=== PATIENT | female | born 1960 | race Caucasian/White ===

== ENCOUNTER 2023-05-02 12:29 | Day surgery (SDC) | payer OTHER, SELFPAY ==
[2023-04-22 10:34] VITALS: BMI 54.2
[2023-05-02] VITALS (9 sets, daily range): BP systolic 147–178; BP diastolic 72–103; PULSE 76–102; RESP 13–22; TEMP 36.3–37; O2SAT 95–97; BMI 54.2
--- NOTE | 2023-05-02 | PATH_ITS ---
[facility] Accession Number: [id number] No. of containers..01 Tissue . 01 Material submitted: . endometrium - ENDOMETRIAL POLYPS . 01 Diagnosis: Endometrium, Polypectomy: Endometrial polyp fragments. Negative for atypical hyperplasia and malignancy. MRV 05/08/2023 1228 Local . 01 Comment: Scant smooth muscle tissue is also present consistent with myometrium. . 01 Electronically signed: . Reyna Grijalva MD, Pathologist NPI- [id number] . 01 Gross description: . ENDOMETRIAL POLYPS: Received in formalin are multiple fragment of eaton soft tissue measuring 4.0 x 4.0 x 0.6 cm in aggregate. Specimen is sectioned and submitted in its entirety in 7 cassettes. /HUNG 05/06/2023 2228 Local . 01 Pathologist provided ICD-10: N84.0 . 01 CPT . 580682 Specimen Comment: A courtesy copy of this report has been sent to [phone] Performed at: 01 [facility] [address] [place] [address] [address] [facility], [place], [place] [id number] MD Narciso Osborn MD Phone: [phone]
--- NOTE | 2023-05-02 13:00 | PM.GYNHP.1 ---
History of Present Illness History of Present Illness Reason for admission: vaginal bleeding Narrative: Chief Complaint: Postmenopausal bleeding Note Note: Patient is a 62-year-old with postmenopausal bleeding.? In 2020 the patient was found to have a large prolapsing endometrial polyp that was removed in the office with endometrial biopsy negative for cancer precancer cells.? Patient has begun having more episodes of intermittent spotting.? She underwent a ultrasound on 02/13/2023 that showed a normal size uterus with an endometrial thickness of 16.1 mm.? Calcified intramural fibroid measuring 3.3 cm decreased in size from prior exam.? Small right ovary with left ovary not visualized. Decision was made to proceed with hysteroscopy D&C. Consent form for hysteroscopy D&C was reviewed with the patient.? Minimal risk of infection, bleeding, reaction to medication or anesthesia, perforation of the uterus that could damage internal structures such as bowel, bladder, ureters that could require opening the abdomen to repair or additional surgery.? Patient is aware that if she has cancer precancer cells on the biopsy she will need a hysterectomy.? Consent form signed, questions answered. [facility] Medical History (Updated 04/22/23 @ 10:41 by Caitie Wu RN) Anxiety Fibroids GERD (gastroesophageal reflux disease) Headache Liver disease Thyroid nodule (2019) Surgical History (Updated 04/22/23 @ 10:40 by Caitie Wu RN) Hx of hernia repair (2010) Status post cholecystectomy (2008) Social History household members: spouse Smoking Status: Former smoker alcohol intake: current Meds Home Medications and Allergies Home Medications Medication Instructions Recorded Confirmed Type ibuprofen 800 mg tablet 800 mg PO Q8H ##20 07/11/16 05/02/23 History hydrochlorothiazide 25 mg tablet 25 mg PO BID #0 tabs 11/02/20 05/02/23 History Allergies Allergy/AdvReac Type Severity Reaction Status Date / Time No Known Drug Allergies Allergy Verified 05/02/23 12:50 Review of Systems Review of Systems ROS: Yes All systems reviewed with the patient and are negative except as otherwise documented Exam Narrative Exam Narrative: Physical exam the HEENT exam within normal limits.? Lungs are clear to auscultation percussion.? No thyromegaly.? Heart is regular rate and rhythm no S3-S4 or murmurs.? Abdomen is obese.? Normal external genitalia with atrophy.? Speculum exam shows a atrophic cervix without any abnormalities.? Pelvic exam was unremarkable but difficult due to the patient's BMI. Assessment & Plan Assessment and plan (1) Postmenopausal bleeding: Status: Acute (2) Endometrial thickening on ultrasound: Status: Acute Assessment & Plan narrative: Patient here for hysteroscopy D&C for postmenopausal bleeding and thickened endometrium on ultrasound.
--- NOTE | 2023-05-02 13:03 | PM.PREOP ---
Pre-operative Note COVID-19 Criteria for continued procedure: Expected advancement of disease process Interval Note History & Physical reviewed/Exam performed by Physician: Yes Changes to H&P: No
--- NOTE | 2023-05-02 13:03 | SUR.OPER ---
Lithotomy on padded OR bed, head on pillow, arms secured on padded arm boards at <90 degrees abduction. Legs secured in padded yellow fins stirrups.
[2023-05-02] MEDS: LACTATED RINGERS 1,000 ML 100 ML IV (13:06)
--- NOTE | 2023-05-02 15:35 | P.OP_ITS ---
Operative Date/Time/Diagnoses Date of procedure: 05/02/23 Time of procedure: 15:35 Pre-op diagnosis: Postmenopausal bleeding with thickened endometrium on ultrasound believed to be polyps Post-op diagnosis: same Procedure & Clinicians Procedure: Hysteroscopy with resection of endometrial polyps Same procedure as scheduled: Yes Indications: Postmenopausal bleeding with polyps by ultrasound Surgeon: Marilyn Veelz Click Yes if Unassisted: Yes Anesthesia Type: General Operative Notes Findings: Endometrial polyp prolapsing out of the patient's cervix, large mass either polyp or intracavitary fibroid, 2 small areas of polyp formation on the lining of the uterus otherwise thin endometrium. Closure Type: not applicable Specimen(s): other (Endometrial polyps with endometrial curettage) Estimated Blood Loss (mL): 15 Procedure in detail: The patient was brought to the operating room where she underwent general anesthesia. She was placed in low stirrups She was prepped and draped in usual sterile fashion with pulsatile stockings in place and functional, warming in pl henry, no antibiotics were indicated. A single-tooth tenaculum was placed on the anterior lip of the cervix and the uterus dilated to #8 Hegar dilator. The hysteroscope was placed into the uterus with a sorbitol solution running and under constant suction. The resecting loop set at 60 W of cutting was used to resect the polyps and mass down to the level of the endometrium. A endometrial curettage was performed. The polyps/mass and the endometrial curettage was sent to pathology. The patient went to recovery room in good condition counts of instruments and sponges were correct. Estimated blood loss less than 15 mL. The sorbitol solution I=O approximately 3000 mL. Complications: none Post-operative Condition: stable Disposition: same day surgery Plan for aftercare: Home when awake and stable. Follow-up will be based on pathology report
[2023-05-02] MEDS: HYDROCODONE/ACET 5/325 TABLET 1 TAB PO (16:26)
--- NOTE | 2023-05-02 16:56 | SUR.PHASEII ---
pt is in the bathroom. Pt steady on her feet. Pt states her pain is better at a level 2. Pt states she is ready to go home. Pt to be discharged with her . Pt voided prior to discharge. Pt had minimal vaginal bleeding.
== END 2023-05-02 17:05 | disposition home or self-care (01) ==
PROVIDERS: PCP Family Medicine; Referring Provider Specialist; Visit Provider Specialist
PROC: 0UDB8ZZ Extraction of Endometrium, Via Natural or Artificial Opening Endoscopic (ICD-10-PCS; CPT 58558; principal; 2023-05-02 12:15)
DX: N95.0 Postmenopausal bleeding (principal); R93.89 Abnormal findings on diagnostic imaging of other specified body structures
CPT/HCPCS: 58558; J1885; J2704; J2765